=== PATIENT | female | born 1975 | race Two or more races ===

== ENCOUNTER 2025-05-26 10:55 | Outpatient (CLI) | payer OTHER | END 2025-05-26 14:03 | disposition home or self-care (01) | LOC: SONOGRAMA 10:55 | PROVIDERS: ATTEND Pathology Anatomic Pathology & Clinical Pathology | DX: D34 Benign neoplasm of thyroid gland (principal); E06.3 Autoimmune thyroiditis; D44.0 Neoplasm of uncertain behavior of thyroid gland; E04.2 Nontoxic multinodular goiter ==